=== PATIENT | female | born 1960 | race Asian ===

== ENCOUNTER 2020-08-09 06:02 | Day surgery (SDC) | payer BC, OTHER ==
[2020-08-06 11:30] VITALS: BMI 26.4
[2020-08-09] MEDS ORDERED: MIDAZOLAM HCL 2 MG/2 ML SINGLE DOSE VIAL ONE (06:22)
[2020-08-09] MEDS ORDERED: ROPIVACAINE HCL 0.5% 30ML VIAL ONE (06:22)
[2020-08-09] MEDS ORDERED: BENZOIN/ALOE VERA/STORAX/TOLU 58 ML BOTTLE ONE (07:07)
[2020-08-09] MEDS ORDERED: DEXAMETHASONE SOD PHOSPHATE 4 MG/1 ML VIAL ONE ×2 (08:08→09:50)
[2020-08-09] MEDS ORDERED: PROPOFOL 20 ML ONE ×2 (08:08→09:14)
[2020-08-09] MEDS ORDERED: ONDANSETRON 4 MG/2 ML VIAL ONE ×2 (08:08→09:50)
[2020-08-09] MEDS ORDERED: ceFAZolin SODIUM 1 GM VIAL ONE (08:09)
[2020-08-09] MEDS ORDERED: SUCCINYLCHOLINE CHLORIDE 200 MG/10 ML SYRINGE ONE (08:09)
[2020-08-09] MEDS ORDERED: TRANEXAMIC ACID 1000 MG/10 ML VIAL ONE (08:12)
[2020-08-09] MEDS ORDERED: traMADol HCL 50 MG TABLET PO PRN (10:05)
[2020-08-09] MEDS ORDERED: PATIENT'S OWN MEDICATION (NON-FORMULARY) (Meloxicam [Meloxicam] 15 MG Tablet) PO PRN (10:05)
[2020-08-09 11:37] VITALS: TEMP 97.8
[2020-08-09 11:40] VITALS: BP 135/77; PULSE 79
[2020-08-09] MEDS ORDERED: oxyCODONE HCL 5 MG TABLET PO PRN ×2 (12:17)
[2020-08-09] MEDS ORDERED: ONDANSETRON 4 MG/2 ML VIAL IVPUSH PRN (12:17)
[2020-08-09] MEDS ORDERED: LACTATED RINGERS SOLUTION 1,000 ML IV SCH (12:30)
[2020-08-09] MEDS ORDERED: CYCLOBENZAPRINE HCL 10 MG TABLET (FP) PO SCH (22:00)
[2020-08-10] MEDS ORDERED: amLODIPine BESYLATE 5 MG TABLET (FP) PO SCH (10:00)
[2020-08-10] MEDS ORDERED: LOSARTAN POTASSIUM 50 MG TABLET PO SCH (10:00)
== END 2020-08-09 12:12 | disposition home or self-care (01) ==
LOC: FASU 06:02
PROVIDERS: ATTEND Orthopaedic Surgery Orthopaedic Surgery of the Spine
PROC: 0RNK0ZZ Release Left Shoulder Joint, Open Approach (ICD-10-PCS; 2020-08-09)
PROC: 0LM20ZZ Reattachment of Left Shoulder Tendon, Open Approach (ICD-10-PCS; principal; 2020-08-09 08:44)
DX: M75.41 Impingement syndrome of right shoulder (principal); M75.112 Incomplete rotator cuff tear or rupture of left shoulder, not specified as traumatic
CPT/HCPCS: 88304-TC; 88311-TC; 94760